=== PATIENT | female | born 1935 | race Caucasian/White ===

== ENCOUNTER 2016-04-27 06:57 | Emergency (ER) | payer MEDICARE, BC ==
[~2016-04-27] VITALS: Ht 157.5 cm; Wt 51.6 kg
[2016-04-27 07:00] VITALS: BP 170/96; PULSE 101; RESP 20; TEMP 98.5; O2SAT 92
[2016-04-27] MEDS ORDERED: SODIUM CHLORIDE 0.9% FLUSH 5 ML FLUSH IVF PRN (08:00)
[2016-04-27] MEDS ORDERED: methylPREDNISolone SOD SUCC 125 MG/2 ML VIAL IVP ONE (08:00)
[2016-04-27 08:05] VITALS: O2SAT 97
--- NOTE | 2016-04-27 08:05 | PD ---
HPI Chief Complaint: Respiratory Symptoms Time Seen by Provider: 07:55 Travel History International Travel<30 days: No Contact w/Intl Traveler<30days: No Traveled to known affect area: No History of Present Illness HPI 80-year-old female with history of COPD, on home O2 at night, presents to the ER today with worsening and shortness of breath and dyspnea on exertion, coughing up yellow phlegm, not getting better at home. She denies any fevers, chest pains, or any other symptoms. Modifying Factors: None Associated Signs & Symptoms: Coughing, shortness of breath Risk Factors: COPD PFSH Past Medical History Respiratory: Yes (copd) ?: Not Social History Tobacco Use: No Allergies-Medications (Allergen,Severity, Reaction): Coded Allergies: No Known Allergies (Unverified , 04/27/16) Reported Meds & Prescriptions Reported Meds & Active Scripts Active Reported Qvar Inh (Beclomethasone Dipropionate) 40 Mcg/Act Aero 2 Puff INH BID Azithromycin 250 Mg Tab 250 Mg PO DAILY Montelukast (Montelukast Sodium) 10 Mg Tab 10 Mg PO HS Prednisone 10 Mg Tab 10 Mg PO DAILY Duoneb (Ipratropium-Albuterol Neb) 0.5-2.5 Mg/3 Ml Neb 1 Nebule INH Q4HR NEB Review of Systems Except as stated in HPI: all other systems reviewed are Neg Physical Exam Narrative GENERAL: Well-nourished, well-developed pleasant elderly white female patient in mild respiratory distress. Awake and oriented 3. SKIN: Warm and dry. HEAD: Normocephalic. EYES: No scleral icterus. No injection or drainage. NECK: Supple, trachea midline. CARDIOVASCULAR: Regular rate and rhythm without murmurs, gallops, or rubs. RESPIRATORY: Breath sounds equal and decreased throughout bilaterally. Mild accessory muscle use. No wheezing, crackles, rhonchi. GASTROINTESTINAL: Abdomen soft, non-tender, nondistended. MUSCULOSKELETAL: No cyanosis, or edema. BACK: Nontender without obvious deformity. No CVA tenderness. Data Data Last Documented VS Vital Signs Date Time Temp Pulse Resp B/P Pulse Ox O2 Delivery O2 Flow Rate FiO2 04/27/16 10:05 89 Room Air 04/27/16 08:05 2 04/27/16 07:00 98.5 101 20 170/96 Orders Iv Access Insert/Monitor (04/27/16 07:55) Ecg Monitoring (04/27/16 07:55) Oximetry (04/27/16 07:55) Oxygen Administration (04/27/16 07:55) Chest, Single Ap (04/27/16 07:55) Sodium Chloride 0.9% Flush (Ns Flush) (04/27/16 08:00) Methylprednisolone So Succ Inj (Solumedr (04/27/16 08:00) Albuterol-Ipratropium Neb (Duoneb Neb) (04/27/16 08:00) Albuterol-Ipratropium Neb (Duoneb Neb) (04/27/16 08:45) Albuterol-Ipratropium Neb (Duoneb Neb) (04/27/16 09:30) Complete Blood Count With Diff (04/27/16 09:21) Basic Metabolic Panel (Bmp) (04/27/16 09:21) B-Type Natriuretic Peptide (04/27/16 09:22) Labs Laboratory Tests Test 04/27/16 09:20 White Blood Count 8.2 TH/MM3 Red Blood Count 5.07 MIL/MM3 Hemoglobin 13.7 GM/DL Hematocrit 40.9 % Mean Corpuscular Volume 80.7 FL Mean Corpuscular Hemoglobin 27.0 PG Mean Corpuscular Hemoglobin 33.5 % Concent Red Cell Distribution Width 13.4 % Platelet Count 131 TH/MM3 Mean Platelet Volume 9.6 FL Neutrophils (%) (Auto) % Lymphocytes (%) (Auto) % Monocytes (%) (Auto) % Eosinophils (%) (Auto) % Basophils (%) (Auto) % Neutrophils # (Auto) TH/MM3 Lymphocytes # (Auto) TH/MM3 Monocytes # (Auto) TH/MM3 Eosinophils # (Auto) TH/MM3 Basophils # (Auto) TH/MM3 CBC Comment AUTO DIFF Differential Total Cells 100 Counted Neutrophils % (Manual) 84 % Band Neutrophils % 7 % Lymphocytes % 5 % Monocytes % 4 % Neutrophils # (Manual) 7.5 TH/MM3 Differential Comment FINAL DIFF MANUAL Platelet Estimate LOW Platelet Morphology Comment NORMAL Sodium Level 140 MEQ/L Potassium Level 3.6 MEQ/L Chloride Level 99 MEQ/L Carbon Dioxide Level 32.5 MEQ/L Anion Gap 9 MEQ/L Blood Urea Nitrogen 13 MG/DL Creatinine 0.52 MG/DL Estimat Glomerular Filtration 114 ML/MIN Rate Random Glucose 163 MG/DL Calcium Level 9.4 MG/DL B-Type Natriuretic Peptide 85 PG/ML MDM Medical Decision Making Medical Screen Exam Complete: Yes Emergency Medical Condition: Yes Medical Record Reviewed: Yes Interpretation(s) Laboratory Tests Test 04/27/16 09:20 Platelet Count 131 TH/MM3 (150-450) Neutrophils % (Manual) 84 % (16-70) Band Neutrophils % 7 % (0-6) Lymphocytes % 5 % (9-44) Platelet Estimate LOW (NORMAL) Carbon Dioxide Level 32.5 MEQ/L (21.0-32.0) Random Glucose 163 MG/DL (74-106) Last 24 hours Impressions Chest X-Ray 04/27/16 4225 Signed Impressions: Service Date/Time: , April 27, 2016 08:02 - CONCLUSION: 1. Cardiomegaly. No acute pulmonary disease. Guille Rachel MD Differential Diagnosis Shortness of breath, coughingbronchitis versus pneumonia versus COPD exacerbation Narrative Course Chest x-ray did not show any signs of acute pulmonary processes. Patient was given several doses of DuoNeb's in the ER and Solu-Medrol. On reevaluation at 10 AM, she is still mildly wheezing but states she is feeling improved. She was able to ambulate to the bathroom and back to the room on her own but did drop her sats to the low 90s. At this point, I have offered her to be admitted to the hospital for further treatment. However, patient is declining at this time stating that she feels improved enough that she wants to go home. I have talked her about her high risk of worsening in symptoms and patient states understanding. She should return should she change her mind or feel worse. As per patient's wishes, I will release her with follow-up to primary care physician. The plan and the wrist were discussed with the patient and she states understanding. Diagnosis Primary Impression: COPD exacerbation Med/Other Pt SpecificInfo: Prescription(s) given Scripts Albuterol 6.7 GM Inh (Proventil Hfa 6.7 GM Inh)90 Mcg/Act Aer2 Puff INH Q4-6H PRN (SHORTNESS OF BREATH) #1 INHALER Ref 0 Prov:Nikki Landry MD 04/27/16 Fluticasone-Salmeterol Inh (Advair Diskus Inh)250-50 Mcg/Blist Aer1 Puff INH BID #1 INHALER Ref 0 Rinse mouth after use. Prov:Nikki Landry MD 04/27/16 Prednisone (21) 10 mg tab Dose Pack 10 Mg Pack10 Mg PO DIRECTED #1 DSPK Ref 0 Prov:Nikki Landry MD 04/27/16 Disposition: 01 DISCHARGE HOME Condition: Stable Nikki Landry MD Apr 27, 2016 08:05
--- NOTE | 2016-04-27 08:08 | RADHPO ---
EXAM DATE/TIME: 04/27/2016 08:02 [facility] COMPARISON: No previous studies available for comparison. INDICATIONS : Short of breath. MEDICAL HISTORY : Chronic obstructive pulmonary disease. SURGICAL HISTORY : None. ENCOUNTER: Initial ACUITY: 4 - 6 days PAIN SCORE: 0/10 LOCATION: Bilateral chest FINDINGS: The cardiac silhouette is enlarged in transverse diameter. The lungs are free of acute parenchymal op acity. No effusions are identified. There is prominence of the aortic knob is with calcification lakshmi acteristic of atherosclerotic vascular disease. CONCLUSION: 1. Cardiomegaly. No acute pulmonary disease. Guille Rachel MD on April 27, 2016 at 8:07 Board Certified Radiologist. This report was verified electronically.
[2016-04-27] MEDS ORDERED: BECL0.07 INH (08:11)
[2016-04-27] MEDS ORDERED: PRED10 PO (08:11)
[2016-04-27] MEDS ORDERED: IPRASOL INH (08:11)
[2016-04-27] MEDS ORDERED: AZIT250T3 PO (08:11)
[2016-04-27] MEDS ORDERED: MONT10TA4 PO (08:11)
[2016-04-27] MEDS: RESP: ALBUTEROL 2.5 MG/IPRATROPIUM 0.5 MG NEB (SCH) INH ×4 (08:12→09:33)
[2016-04-27 09:20] VITALS: O2SAT 95
[2016-04-27 09:32] LABS: HEMATOCRIT 40.9 % (35.0-46.0); MEAN CELL VOLUME 80.7 FL (80.0-100.0); MEAN CORPUSCULAR HGB CONC 33.5 % (32.0-36.0); PLATELET COUNT 131 TH/MM3 (150-450); RED BLOOD COUNT 5.07 MIL/MM3 (4.00-5.30); RED CELL DISTRIBUTION WIDTH 13.4 % (11.6-17.2); WHITE BLOOD COUNT 8.2 TH/MM3 (4.0-11.0)
[2016-04-27 09:33] LABS: HEMO FLAGS AUTO DIFF
[2016-04-27 10:05] VITALS: O2SAT 89
[2016-04-27 10:05] LABS: BICARBONATE 32.5 MEQ/L (21.0-32.0)
[2016-04-27 10:06] LABS: BANDS 7 % (0-6); NEUTROPHIL # MANUAL DIFF 7.5 TH/MM3 (1.8-7.7); POLYS (SEG NEUTROPHILS) 84 % (16-70); WBC DIFF SAMPLE 100
[2016-04-27 10:08] LABS: PLATELET ESTIMATE SMEAR LOW (NORMAL); PLATELET MORPHOLOGY NORMAL (NORMAL); SCAN/DIFF FINAL DIFF MANUAL
[2016-04-27 10:09] LABS: POTASSIUM 3.6 MEQ/L (3.5-5.1)
[2016-04-27] MEDS ORDERED: ALBU6.7H INH (10:17)
[2016-04-27] MEDS ORDERED: PRED10PA PO (10:17)
[2016-04-27] MEDS ORDERED: ADVA250A INH (10:17)
== END 2016-04-27 10:32 | disposition home or self-care (01) ==
LOC: PHED 06:57
DX: J44.1 Chronic obstructive pulmonary disease with (acute) exacerbation (principal); R06.00 Dyspnea, unspecified; R05 Cough
CPT/HCPCS: 71010; 80048; 83880; 85007; 85027; 94640; 94664; 96374; 99285; J2930

== ENCOUNTER 2016-05-02 11:11 | Emergency (ER) | payer MEDICARE, BC ==
[~2016-05-02] VITALS: Ht 157.5 cm; Wt 52.0 kg
[~2016-05-02 11:11] MED LIST: ADVA250A INH; ALBU6.7H INH; AZIT250T3 PO; BECL0.07 INH; IPRASOL INH; MONT10TA4 PO; PRED10 PO; PRED10PA PO
[2016-05-02] MEDS ORDERED: RESP: ALBUTEROL 2.5 MG/IPRATROPIUM 0.5 MG NEB (SCH) NEB ONE (11:30)
[2016-05-02] MEDS ORDERED: methylPREDNISolone SOD SUCC 125 MG/2 ML VIAL IV PUSH ONE (11:30)
[2016-05-02] MEDS ORDERED: FORM20NE INH (11:30)
[2016-05-02] MEDS ORDERED: ALBUAER3 INH (11:30)
[2016-05-02 11:32] VITALS: BP 171/104; PULSE 95; RESP 30; TEMP 98.1; O2SAT 79
--- NOTE | 2016-05-02 11:37 | PD ---
HPI Chief Complaint: Respiratory Symptoms Time Seen by Provider: 11:17 Travel History International Travel<30 days: No Contact w/Intl Traveler<30days: No Traveled to known affect area: No History of Present Illness HPI This patient complains of shortness of breath and generalized weakness. She was seen here recently for the same thing. She just hasn't gotten any better. She has a dry cough. No chest pain or presyncopal symptoms. She is here vacationing. Has history of nebulizer and oxygen dependent COPD. No longer smokes. Not having any chest pain. Has been wheezing and congested. Symptoms severity is moderate. No alleviating factors. Duration one week PFSH Past Medical History COPD: Yes Respiratory: Yes (copd) Past Surgical History Hysterectomy: Yes Neurologic Surgery: Yes (brain tumor) Social History Alcohol Use: Yes (occ) Tobacco Use: No Substance Use: No Allergies-Medications (Allergen,Severity, Reaction): Coded Allergies: No Known Allergies (Unverified , 05/02/16) Reported Meds & Prescriptions Reported Meds & Active Scripts Active Doxycycline Hyclate 100 Mg Cap 100 Mg PO BID Prednisone 20 Mg Tab 40 Mg PO DAILY Proventil Hfa 6.7 GM Inh (Albuterol Sulfate) 90 Mcg/Act Aer 2 Puff INH Q4-6H PRN Advair Diskus Inh (Fluticasone-Salmeterol Inh) 250-50 Mcg/Blist Aer 1 Puff INH BID Rinse mouth after use. Prednisone (21) 10 mg tab Dose Pack (Prednisone) 10 Mg Pack 10 Mg PO DIRECTED Reported Perforomist Neb (Formoterol Fumarate) 20 Mcg/2 Ml Neb 1 Nebule INH BID Proair Hfa 8.5 GM Inh (Albuterol Sulfate) 90 Mcg/Act Aer 2 Puff INH Q4-6H PRN 108 mcg/actuation Qvar Inh (Beclomethasone Dipropionate) 40 Mcg/Act Aero 2 Puff INH BID Montelukast (Montelukast Sodium) 10 Mg Tab 10 Mg PO HS Duoneb (Ipratropium-Albuterol Neb) 0.5-2.5 Mg/3 Ml Neb 1 Nebule INH Q4HR NEB Review of Systems General / Constitutional: No: Fever Eyes: No: Visual changes HENT: No: Headaches Cardiovascular: No: Chest Pain or Discomfort Respiratory: Positive: Cough, Shortness of Breath, Wheezing Gastrointestinal: No: Abdominal Pain Genitourinary: No: Dysuria Musculoskeletal: Positive: Weakness, No: Pain Skin: No Rash Neurologic: Positive: Weakness Psychiatric: No: Depression Endocrine: No: Polydipsia Hematologic/Lymphatic: No: Easy Bruising Physical Exam Narrative GENERAL: Thin elderly well-developed patient with some dyspnea SKIN: Warm and dry. HEAD: Atraumatic. Normocephalic. EYES: Pupils equal and round. No scleral icterus. No injection or drainage. ENT: No nasal bleeding or discharge. Mucous membranes pink and moist. NECK: Trachea midline. No JVD. CARDIOVASCULAR: Regular rate and rhythm. No murmur appreciated. RESPIRATORY: No accessory muscle use. Some scattered rhonchi and rare wheeze, diminished breath sounds. Breath sounds equal bilaterally. GASTROINTESTINAL: Abdomen soft, non-tender, nondistended. Hepatic and splenic margins not palpable. MUSCULOSKELETAL: No obvious deformities. No clubbing. No cyanosis. No edema. NEUROLOGICAL: Awake and alert. No obvious cranial nerve deficits. Motor grossly within normal limits. Normal speech. PSYCHIATRIC: Appropriate mood and affect; insight and judgment normal. Data Data Last Documented VS Vital Signs Date Time Temp Pulse Resp B/P Pulse Ox O2 Delivery O2 Flow Rate FiO2 05/02/16 11:53 86 28 194/87 98 Aerosol Mask 15 05/02/16 11:32 98.1 Orders Chest, Single Ap (05/02/16 ) Iv Access Insert/Monitor (05/02/16 11:24) Complete Blood Count With Diff (05/02/16 11:24) Basic Metabolic Panel (Bmp) (05/02/16 11:24) Albuterol-Ipratropium Neb (Duoneb Neb) (05/02/16 11:30) Methylprednisolone So Succ Inj (Solumedr (05/02/16 11:30) Labs Laboratory Tests Test 05/02/16 11:30 White Blood Count 14.8 TH/MM3 Red Blood Count 5.44 MIL/MM3 Hemoglobin 14.8 GM/DL Hematocrit 44.0 % Mean Corpuscular Volume 80.8 FL Mean Corpuscular Hemoglobin 27.1 PG Mean Corpuscular Hemoglobin 33.6 % Concent Red Cell Distribution Width 13.4 % Platelet Count 189 TH/MM3 Mean Platelet Volume 9.4 FL Neutrophils (%) (Auto) 88.1 % Lymphocytes (%) (Auto) 4.2 % Monocytes (%) (Auto) 6.1 % Eosinophils (%) (Auto) 0.0 % Basophils (%) (Auto) 1.6 % Neutrophils # (Auto) 13.1 TH/MM3 Lymphocytes # (Auto) 0.6 TH/MM3 Monocytes # (Auto) 0.9 TH/MM3 Eosinophils # (Auto) 0.0 TH/MM3 Basophils # (Auto) 0.2 TH/MM3 CBC Comment DIFF FINAL Differential Comment Sodium Level 139 MEQ/L Potassium Level 3.8 MEQ/L Chloride Level 95 MEQ/L Carbon Dioxide Level 38.2 MEQ/L Anion Gap 6 MEQ/L Blood Urea Nitrogen 21 MG/DL Creatinine 0.61 MG/DL Estimat Glomerular Filtration 95 ML/MIN Rate Random Glucose 115 MG/DL Calcium Level 9.9 MG/DL MDM Medical Decision Making Medical Screen Exam Complete: Yes Emergency Medical Condition: Yes Medical Record Reviewed: Yes Differential Diagnosis Differential diagnosis includes COPD, asthma, pneumonia, bronchitis, CHF Narrative Course I have reviewed the patient's electronic medical record. Reviewed her visit here from a week ago. This includes labs and chest x-ray results. IV placed CBC shows some leukocytosis which is likely due to high-dose steroids Metabolic profile shows normal electrolytes other than elevated bicarbonate not surprising for her condition I reviewed her chest x-ray which looks normal other than COPD changes which are chronic I gave her IV Solu-Medrol I gave her series of 3 nebulizer treatments Initially when I came in the room she was at 98% on 6 L nasal cannula I changed her to 3 L and she still remained at 98% On her usual 2 L she is 96% We had a lengthy discussion. I don't feel she requires hospitalization. Recommended she wear oxygen 24 hours a day for couple of days and be in a restful state. I wrote her 5 more days of prednisone and I will write her a course of doxycycline. She has nebulizer and oxygen with her. She is clinically improved after the above treatments. Diagnosis Primary Impression: COPD exacerbation Additional Instructions: The patient was advised to follow up with their physician and return if they worsen. Rest and wear oxygen around the clock Med/Other Pt SpecificInfo: Prescription(s) given Scripts Doxycycline Hyclate 100 Mg [id number] Mg PO BID #14 CAP Ref 0 Prov:Mandeep Hernandez MD 05/02/16 Prednisone 20 Mg Tab40 Mg PO DAILY #10 TAB Ref 0 Prov:Mandeep Hernandez MD 05/02/16 Disposition: 01 DISCHARGE HOME Condition: Stable Mandeep Hernandez MD May 02, 2016 11:37
[2016-05-02 11:40] VITALS: O2SAT 97
[2016-05-02 11:40] LABS: AUTOMATED NEUTROPHIL # 13.1 TH/MM3 (1.8-7.7); BASOPHIL # 0.2 TH/MM3 (0-0.2); BASOPHIL % 1.6 % (0.0-2.0); HEMO FLAGS DIFF FINAL; LYMPH % 4.2 % (9.0-44.0); LYMPHOCYTE # 0.6 TH/MM3 (1.0-4.8); MEAN CELL VOLUME 80.8 FL (80.0-100.0); MEAN CORPUSCULAR HEMOGLOBIN 27.1 PG (27.0-34.0); MEAN CORPUSCULAR HGB CONC 33.6 % (32.0-36.0); MONO % 6.1 % (0.0-8.0); NEUT % 88.1 % (16.0-70.0); PLATELET COUNT 189 TH/MM3 (150-450); RED BLOOD COUNT 5.44 MIL/MM3 (4.00-5.30); RED CELL DISTRIBUTION WIDTH 13.4 % (11.6-17.2); WHITE BLOOD COUNT 14.8 TH/MM3 (4.0-11.0)
--- NOTE | 2016-05-02 11:40 | RADHPO ---
EXAM DATE/TIME: 05/02/2016 11:33 [facility] COMPARISON: CHEST SINGLE AP, April 27, 2016, 8:02. INDICATIONS : Cough and shortness of breath. MEDICAL HISTORY : Chronic obstructive pulmonary disease. SURGICAL HISTORY : None. ENCOUNTER: Initial ACUITY: 1 week PAIN SCORE: 0/10 LOCATION: Bilateral chest FINDINGS: A single view of the chest demonstrates the lungs to be symmetrically hyperaerated without evidence o f mass, infiltrate or effusion. The cardiomediastinal contours are unremarkable with calcification i n the aortic knob. Osseous structures are intact. CONCLUSION: No acute disease. No significant change has occurred. Johnathan Thorpe MD on May 02, 2016 at 11:38 Board Certified Radiologist. This report was verified electronically.
[2016-05-02 11:45] LABS: POTASSIUM 3.8 MEQ/L (3.5-5.1)
[2016-05-02 11:48] LABS: BICARBONATE 38.2 MEQ/L (21.0-32.0)
[2016-05-02 11:53] VITALS: BP 194/87; PULSE 86; RESP 28; O2SAT 98
[2016-05-02] MEDS ORDERED: PRED20 PO (13:12)
[2016-05-02] MEDS ORDERED: DOXY100C PO (13:12)
== END 2016-05-02 13:50 | disposition home or self-care (01) ==
LOC: PHED 11:11
DX: J44.1 Chronic obstructive pulmonary disease with (acute) exacerbation (principal); Z87.891 Personal history of nicotine dependence
CPT/HCPCS: 71010; 80048; 85025; 94664; 96374; 99285; J2930